=== PATIENT | male | born 1950 | race Caucasian/White ===

== ENCOUNTER 2018-08-24 19:43 | Inpatient (IN) | payer MEDICARE, OTHER ==
[2018-08-24 20:01] LABS: ADD MAN DIFF? NO
[2018-08-24 20:05] LABS: BASOPHIL # 0.1 10^3/ul (0.0-0.1); BASOPHILS % 0.9 % (0.0-2.0); EOSINOPHILS # 0.2 10^3/ul (0.0-0.5); EOSINOPHILS % 2.5 % (0.0-7.0); HEMATOCRIT 50.5 % (42.0-52.0); HEMOGLOBIN 16.3 g/dl (14.0-18.0); LYMPHOCYTES # 2.3 10^3/ul (0.8-2.9); LYMPHOCYTES % 25.1 % (15.0-51.0); MEAN CORPUSCULAR HEMOGLOBIN 28.5 pg (29.0-33.0); MEAN CORPUSCULAR HGB CONC 32.3 g/dl (32.0-37.0); MEAN CORPUSCULAR VOLUME 88.3 fl (82.0-101.0); MEAN PLATELET VOLUME 11.1 fl (7.4-10.4); MONOCYTE # 0.9 10^3/ul (0.3-0.9); MONOCYTES % 9.5 % (0.0-11.0); NEUTROPHIL # 5.6 10^3/ul (1.6-7.5); NEUTROPHILS % 61.2 % (39.0-77.0); PLATELET COUNT 306 10^3/UL (140-415); RED BLOOD COUNT 5.72 10^6/ul (4.70-6.10); RED CELL DISTRIBUTION WIDTH 15.7 % (11.5-14.5)
[2018-08-24 20:05] LABS: WHITE BLOOD COUNT 9.2 10^3/ul (4.8-10.8)
[2018-08-24] MEDS: ASPIRIN 81 MG TAB PO (20:14)
[2018-08-24 20:20] LABS: ANION GAP 13 (8-16); BLOOD UREA NITROGEN 26 mg/dl (7-20); CALCIUM 9.5 mg/dl (8.4-10.2); CARBON DIOXIDE 27 mmol/L (21-31); CHLORIDE 107 mmol/L (97-110); CREATININE 0.79 mg/dl (0.61-1.24); GLUCOSE 121 mg/dl (70-220); SODIUM 141 mmol/L (135-144)
[2018-08-24 20:24] LABS: POTASSIUM 5.8 mmol/L (3.5-5.1)
[2018-08-24 20:25] LABS: AADO2 Arterial 395.6 mmHg (7.0-24.0); Allen Test ACCEPTAB; Arterial Base Excess -0.5 mmol/L (-3.0-3); Arterial Blood Gas Oxygen Sat 99.5 mmHG (95.0-98.0); Arterial COHb 0.4 % (0.0-3.0); Arterial Fraction of Oxyhgb 98.7 % (93.0-99.0); Arterial HCO3 26.5 mmol/L (22.0-26.0); Arterial MetHb 0.4 % (0.0-1.5); Arterial pCO2 51.9 mmhg (35-45); MODE MASK - NRB; Site Left Radial
[2018-08-24 20:32] LABS: B-TYPE NATRIURETIC PEPTIDE 40 PG/ML (0-125); TROPONIN-I < 0.012 ng/ml (0.000-0.120)
[2018-08-25] MEDS: LABETALOL HCL 20MG INJ IV (00:11)
[2018-08-25] MEDS: METHYLPREDNISOLONE 125 MG INJ IV (00:11)
[2018-08-25] MEDS: IOHEXOL 350MG/ML 50 ML BTL (00:41)
[2018-08-25] MEDS: SOD CHLORIDE 0.9% 100 ML (00:41)
[2018-08-25] MEDS: IOHEXOL 100 ML (00:41)
[2018-08-25] MEDS: ALBUTEROL 0.083% (NEB) 2.5 MG/3 ML AMP HHN (00:56)
[2018-08-25] MEDS ORDERED: SOD CHLORIDE 0.9% 500 ML IV (01:00)
[2018-08-25] MEDS ORDERED: ONDANSETRON 4 MG INJ IV (01:00)
[2018-08-25] MEDS ORDERED: ALBUTEROL 0.083% (NEB) 2.5 MG/3 ML AMP HHN (01:00)
[2018-08-25] MEDS ORDERED: ACETAMINOPHEN 325 MG TAB PO (01:00)
[2018-08-25] MEDS ORDERED: NACL 0.9% 3 ML SYG IV (01:00)
[2018-08-25] MEDS: ALBUTEROL/IPRATROPIUM (NEB) 3 ML AMP HHN ×6 (01:00→20:20)
[2018-08-25 03:08] LABS: CREATINE KINASE 50 IU/L (23-200)
[2018-08-25 03:18] LABS: CK INDEX 5.5; CK-MB 2.75 ng/ml (0.0-2.4); TROPONIN-I < 0.012 ng/ml (0.000-0.120)
[2018-08-25] MEDS: FUROSEMIDE 40 MG TAB PO (05:24)
[2018-08-25] MEDS: PANTOPRAZOLE 40 MG INJ IV (05:24)
[2018-08-25] MEDS ORDERED: hydrALAzine 20 MG INJ IV (06:00)
[2018-08-25 06:08] LABS: ADD MAN DIFF? NO
[2018-08-25 06:12] LABS: WHITE BLOOD COUNT 7.9 10^3/ul (4.8-10.8)
[2018-08-25 06:12] LABS: BASOPHILS % 0.1 % (0.0-2.0); HEMATOCRIT 48.9 % (42.0-52.0); HEMOGLOBIN 15.4 g/dl (14.0-18.0); LYMPHOCYTES % 13.1 % (15.0-51.0); MEAN CORPUSCULAR HEMOGLOBIN 28.3 pg (29.0-33.0); MEAN CORPUSCULAR HGB CONC 31.5 g/dl (32.0-37.0); MEAN CORPUSCULAR VOLUME 89.7 fl (82.0-101.0); MEAN PLATELET VOLUME 11.3 fl (7.4-10.4); MONOCYTE # 0.1 10^3/ul (0.3-0.9); MONOCYTES % 0.9 % (0.0-11.0); NEUTROPHIL # 6.8 10^3/ul (1.6-7.5); NEUTROPHILS % 85.5 % (39.0-77.0); PLATELET COUNT 254 10^3/UL (140-415); RED BLOOD COUNT 5.45 10^6/ul (4.70-6.10); RED CELL DISTRIBUTION WIDTH 15.7 % (11.5-14.5)
[2018-08-25 06:36] LABS: HEMOGLOBIN A1C 5.9 % (0-5.9)
[2018-08-25 06:58] LABS: ALANINE AMINOTRANSFERASE 31 IU/L (13-69); ALBUMIN 3.8 g/dl (3.3-4.9); ALBUMIN/GLOBULIN RATIO 1.08; ALKALINE PHOSPHATASE 85 IU/L (42-121); ANION GAP 16 (8-16); ASPARTATE AMINO TRANSFERASE 26 IU/L (15-46); BILIRUBIN,INDIRECT 0.3 mg/dl (0-1.1); BILIRUBIN,TOTAL 0.3 mg/dl (0.2-1.3); BLOOD UREA NITROGEN 25 mg/dl (7-20); CALCIUM 9.4 mg/dl (8.4-10.2); CARBON DIOXIDE 26 mmol/L (21-31); CHLORIDE 103 mmol/L (97-110); CHOL/HDL RATIO 5.6 RATIO; CHOLESTEROL 213 mg/dl (100-200); CREATININE 0.94 mg/dl (0.61-1.24); GLUCOSE 157 mg/dl (70-220); HDL CHOLESTEROL 38 mg/dl (30-78); LDL CHOLESTEROL,CALCULATED 151 mg/dl; MAGNESIUM 2.3 mg/dl (1.7-2.5); POTASSIUM 5.3 mmol/L (3.5-5.1); SODIUM 140 mmol/L (135-144); TOTAL PROTEIN 7.3 g/dl (6.1-8.1); TRIGLYCERIDES 119 mg/dl (0-149)
[2018-08-25 07:04] LABS: D-DIMER 575.83 ng/ml (<460)
[2018-08-25] MEDS ORDERED: LIPASE PROTEASE AMYLASE PO (08:00)
[2018-08-25] MEDS ORDERED: LOSARTAN 50 MG TAB PO (09:00)
[2018-08-25] MEDS ORDERED: NON-FORMULARY/PATIENT OWN MED (Isosorbide Mononitrate* 60 MG) PO (09:00)
[2018-08-25] MEDS ORDERED: NON-FORMULARY/PATIENT OWN MED (Clopidogrel Bisulfate* 75 MG) PO (09:00)
[2018-08-25] MEDS ORDERED: NON-FORMULARY/PATIENT OWN MED (Losartan-Hydrochlorothiazide (Losartan-HCTZ) 1 TAB) PO (09:00)
[2018-08-25] MEDS ORDERED: NON-FORMULARY/PATIENT OWN MED (Umeclidinium Brm-Vilanterol Tr (Anoro Ellipta) 1 EACH) INHALATION (09:00)
[2018-08-25] MEDS ORDERED: HYDROCHLOROTHIAZIDE 12.5 MG CAP PO (09:00)
[2018-08-25 09:13] LABS: CREATINE KINASE 48 IU/L (23-200)
[2018-08-25 09:27] LABS: CK INDEX 4.9; CK-MB 2.37 ng/ml (0.0-2.4); TROPONIN-I < 0.012 ng/ml (0.000-0.120)
[2018-08-25] MEDS: CREON (24K-76K-120K) 1 CAP PO ×3 (09:33→17:15)
[2018-08-25] MEDS: CREON (12k-38k-60k) 1 CAP PO ×3 (09:36→17:15)
[2018-08-25] MEDS: CLOPIDOGREL 75 MG TAB PO (09:36)
[2018-08-25] MEDS: ISOSORBIDE MONONITRATE(SR)60 MG TAB PO (09:37)
[2018-08-25] MEDS: AMLODIPINE 5 MG TAB PO (09:37)
[2018-08-25] MEDS: METHYLPREDNISOLONE 40 MG INJ IV ×2 (09:38→22:09)
[2018-08-25] MEDS: AMIODARONE 200 MG TAB PO (09:38)
[2018-08-25] MEDS ORDERED: FAMOTIDINE 20 MG TAB PO (21:00)
[2018-08-25] MEDS ORDERED: NON-FORMULARY/PATIENT OWN MED (Pravastatin Sodium* 20 MG) PO (21:00)
[2018-08-25] MEDS: PAROXETINE 20 MG TAB PO (22:08)
[2018-08-25] MEDS: ATORVASTATIN 10 MG TAB PO (22:08)
[2018-08-25] MEDS: TAMSULOSIN (SR) 0.4 MG CAP PO (22:09)
[2018-08-26] MEDS: ALBUTEROL/IPRATROPIUM (NEB) 3 ML AMP HHN ×4 (00:33→12:43)
[2018-08-26 06:02] LABS: ADD MAN DIFF? NO
[2018-08-26 06:04] LABS: BASOPHILS % 0.1 % (0.0-2.0); HEMATOCRIT 43.9 % (42.0-52.0); HEMOGLOBIN 14.3 g/dl (14.0-18.0); LYMPHOCYTES # 1.3 10^3/ul (0.8-2.9); LYMPHOCYTES % 9.1 % (15.0-51.0); MEAN CORPUSCULAR HEMOGLOBIN 28.7 pg (29.0-33.0); MEAN CORPUSCULAR HGB CONC 32.6 g/dl (32.0-37.0); MEAN PLATELET VOLUME 11.2 fl (7.4-10.4); MONOCYTE # 0.3 10^3/ul (0.3-0.9); MONOCYTES % 1.8 % (0.0-11.0); NEUTROPHIL # 12.3 10^3/ul (1.6-7.5); NEUTROPHILS % 88.3 % (39.0-77.0); PLATELET COUNT 241 10^3/UL (140-415); RED BLOOD COUNT 4.99 10^6/ul (4.70-6.10); RED CELL DISTRIBUTION WIDTH 15.6 % (11.5-14.5)
[2018-08-26] MEDS: PANTOPRAZOLE 40 MG INJ IV (06:07)
[2018-08-26] MEDS: FUROSEMIDE 40 MG TAB PO (06:08)
[2018-08-26 06:25] LABS: ANION GAP 15 (8-16); BLOOD UREA NITROGEN 37 mg/dl (7-20); CALCIUM 9.3 mg/dl (8.4-10.2); CARBON DIOXIDE 25 mmol/L (21-31); CHLORIDE 105 mmol/L (97-110); GLUCOSE 145 mg/dl (70-220); SODIUM 140 mmol/L (135-144)
[2018-08-26 06:29] LABS: PHOSPHORUS 4.2 mg/dl (2.5-4.9)
[2018-08-26 06:29] LABS: MAGNESIUM 1.9 mg/dl (1.7-2.5)
[2018-08-26] MEDS: CREON (12k-38k-60k) 1 CAP PO ×2 (08:00→12:04)
[2018-08-26] MEDS: CREON (24K-76K-120K) 1 CAP PO ×2 (08:01→12:04)
[2018-08-26] MEDS: CLOPIDOGREL 75 MG TAB PO (09:45)
[2018-08-26] MEDS: AMLODIPINE 5 MG TAB PO (09:46)
[2018-08-26] MEDS: ISOSORBIDE MONONITRATE(SR)60 MG TAB PO (09:46)
[2018-08-26] MEDS: AMIODARONE 200 MG TAB PO (09:46)
[2018-08-26] MEDS: METHYLPREDNISOLONE 40 MG INJ IV (09:47)
[2018-08-26] MEDS: ENOXAPARIN 40 MG/0.4 ML SYG SC (09:54)
== END 2018-08-26 14:35 | disposition home or self-care (01) | DRG 189 ==
LOC: 6WM 08-25 00:31 → E/R 19:43
PROC: 5A09357 Assistance with Respiratory Ventilation, Less than 24 Consecutive Hours, Continuous Positive Airway Pressure (ICD-10-PCS; principal; 2018-08-24)
DX: J96.02 Acute respiratory failure with hypercapnia (principal); J44.1 Chronic obstructive pulmonary disease with (acute) exacerbation; E87.5 Hyperkalemia; I25.10 Atherosclerotic heart disease of native coronary artery without angina pectoris; N40.0 Benign prostatic hyperplasia without lower urinary tract symptoms; E78.5 Hyperlipidemia, unspecified; I10 Essential (primary) hypertension; J96.01 Acute respiratory failure with hypoxia; R55 Syncope and collapse; Z95.1 Presence of aortocoronary bypass graft; Z87.891 Personal history of nicotine dependence; R73.03 Prediabetes
CPT/HCPCS: 36415; 36600; 70450; 71045; 71275; 80048; 80053; 80061; 82550; 82553; 82803; 82962; 83036; 83735; 83880; 84100; 84443; 84484; 85025; 85378; 90686; 93005; 93306; 93880; 94640; 94660; 94664; 96374; 96375; 99291-25